=== PATIENT | male | born 1965 | race Caucasian/White ===

== ENCOUNTER → 2024-03-29 06:17 | Day surgery (SDC) | payer BC, MEDICARE, SELFPAY | LOC: GI 06:17 | PROVIDERS: ATTENDING PHYSICIAN Internal Medicine Gastroenterology; FAMILY PHYSICIAN Family Medicine | DX: K52.9 Noninfective gastroenteritis and colitis, unspecified (principal); K63.89 Other specified diseases of intestine; K57.30 Diverticulosis of large intestine without perforation or abscess without bleeding; R19.5 Other fecal abnormalities | CPT/HCPCS: 45380; 88305 ==

== ENCOUNTER 2024-07-01 17:22 | Emergency (ER) | payer BC, MEDICARE, SELFPAY ==
[2024-07-01 17:24] VITALS: BP 157/96
[2024-07-01 17:38] VITALS: BP 127/84
[2024-07-01 17:41] VITALS: BMI 33.6
[2024-07-01 19:19] VITALS: BP 134/88
[2024-07-01] MEDS: TORADOL 30 MG IV (19:22)
[2024-07-01] MEDS: VALIUM INJECTION 5 MG IV (19:22)
--- NOTE | 2024-07-01 19:24 | ED.MUSCINJ ---
HPI-Injury
General
Chief Complaint: Musculo-Skeletal Complaint
Source: patient
Exam Limitations: none
Time Seen by Provider: 07/01/24 18:54
History of Present Illness-Injury
Initial Injury comments:
59 year old male presents with significant pain to the right side of his neck starting this morning and getting worse throughout the day. He remembers lifting several heavy objects yesterday. It hurts to turn his head to the right or straighten
his neck upright. He denies chest pain or shortness of breath. No radiation of pain down the arm. No numbness or tingling. He tried Aleve yesterday without significant relief. No other complaints at this time
Past History
Past History
ED Past Medical History: None
ED Past Surgical History: Orthopedic
Phy Exam
Physical Exam
Physical Exam:
General: Well-appearing male no acute respiratory distress
HEENT: Normocephalic atraumatic
Heart: Regular rate and rhythm no murmurs
Lungs: Clear no wheeze or rales
Musculoskeletal exam: No significant tenderness about the midline of the cervical spine. He has paraspinous muscle tenderness and spasm noted to the right area of the cervical spine. Patient tends to lean towards the left however any attempt of
straining or turning to the right reproduces his pain. He has good passive motion of the right shoulder
Vascular: 2+ radial pulse right wrist
Neurologic: Good sensation right upper extremity
Injury Course
Orders/Labs/Results
Orders:
Orders
07/01/24 19:05
Ketorolac [Toradol] 30 mg IV NOW STA
diazePAM [Valium Injection] 5 mg IV NOW STA
07/01/24 19:31
CR Cervical Spine 2 or 3 Vw Urgent
Comment:
Reason For Exam: pain
MDM/Problems Addressed
Differential Diagnosis Includes:
Neck pain. Consider cervical strain versus radiculopathy. Patient does have remote history of a cervical fusion at the C5 level. No fevers to suggest infectious source. Will try to manage discomfort with medications to the IV
*Critical Care Note
Total Time (30-74mins, 75-104mins- exclusive of procedures): Not Applicable
Update Note
Update Note:
X-rays personally visualized and demonstrate mild degenerative changes throughout the cervical spine as well as a straightening of the normal curvature. No other acute findings noted. Patient feeling better after IV Valium and Toradol. Suspect
underlying cervical strain. Will send home further muscle relaxers and anti-inflammatories.
ED Attending Note
-
Portions of this chart may have been created with voice recognition software.� Occasional wrong word or��sound alike� substitutions may have occurred due to the inherent limitations of voice recognition software.
Discharge Plan
Departure
Patient Disposition: Home (Routine Discharge)
Date of Disposition: 07/01/24
Time of Disposition: 20:42
Patient with high blood pressure during this ER visit?: No
Discharge Problem:
Cervical strain
Instructions: Muscle and Bone Pain (DC)
Prescriptions:
New
diazepam [Valium] 5 mg tablet
5 mg PO TID PRN (Reason: muscle spasm) Qty: 10 0RF
prednisone 20 mg tablet
40 mg PO DAILY 5 Days Qty: 10 0RF
No Action
tobramycin 1 DROP drops
2 drops LEFT EYE Q4HWA Qty: 1 0RF
Referrals:
Jerardo Arroyo MD [Family Provider] -
Activity Restrictions/Additional Instructions:
Continue with warm compresses. Use muscle relaxer as needed for spasm. Use anti-inflammatories as directed. Return if worse otherwise follow-up with family doctor
Interventions
Interventions:
*Risk Screen - Suicide Last Done: 07/01/24 19:25
*General Assessment Last Done: 07/01/24 19:25
*Neglect/Abuse Screening Last Done: 07/01/24 19:25
ED- Fall Risk Assessment Last Done: 07/01/24 19:25
*ED COVID-19 Vaccine History Last Done: 07/01/24 19:25
ED-Musculoskeletal Assessment Last Done: 07/01/24 17:34
Discharge Date and Time
Print Language: [place]
[2024-07-01 20:36] VITALS: BP 140/62
== END 2024-07-01 21:46 | disposition home or self-care (01) ==
LOC: EMR 17:22
PROVIDERS: EMERGENCY PHYSICIAN Student in an Organized Health Care Education/Training Program; FAMILY PHYSICIAN Family Medicine
DX: S16.1XXA Strain of muscle, fascia and tendon at neck level, initial encounter (principal); X50.0XXA Overexertion from strenuous movement or load, initial encounter
CPT/HCPCS: 99284; 96374; 96375; 72040

== ENCOUNTER → 2025-02-27 06:56 | Outpatient (REF) | payer BC, MEDICARE, SELFPAY | LOC: PAVMRI 06:56 | PROVIDERS: ATTENDING PHYSICIAN Orthopaedic Surgery; FAMILY PHYSICIAN Family Medicine | DX: M84.374A Stress fracture, right foot, initial encounter for fracture (principal) | CPT/HCPCS: 73721 ==